=== PATIENT | female | born 1965 | race Native Hawaiian/Other Pacific Islander ===

== ENCOUNTER 2017-08-01 11:03 | Emergency (ER) | payer OTHER ==
[2017-08-01] MEDS ORDERED: BENADRYL IV ONE (11:55)
[2017-08-01] MEDS ORDERED: MORPHINE IV ONE (11:55)
[2017-08-01 12:48] LABS: Bacteria,Urine 1+ /HPF (Negative); Bilirubin,Urine NEG (Negative); Blood,Urine NEG (Negative); Color,Urine Yellow (Yellow); Hyaline Casts,Urine 1 /LPF; Protein,Urine <15 mg/dL mg/dL (Negative); Urobilinogen,Urine < 2.0 mg/dL (<2.0)
[2017-08-01 12:50] LABS: HCG Qualitative,Urine Negative (Negative)
--- NOTE | 2017-08-01 12:51 | Emergency Department Report ---
ED Female HPI - General Chief complaint: Extremity Injury, Lower Stated complaint: VAGINAL/LEFT LEG PAIN Time Seen by Provider: 08/01/17 11:29 Source: patient, EMS Mode of arrival: Wheelchair Limitations: Language Barrier - History of Present Illness Initial comments: 51-year-old Marshallese-speaking female presents with complaint of severe vaginal irritation. Patient states this been an ongoing issue for at least 1-2 years but has gotten particularly uncomfortable over the last several days. Patient states she was treated for a vaginal infection with [facility] within the last week. Patient is awake alert and oriented 3. Describes sensation as a severe irritation of her external vaginal region/vulva. Triage note is incorrect patient does not have left leg pain patient actually has left-sided vaginal pain /irritation. Patient denies dysuria or hematuria. Lmp was over 6 years ago. Denies any trauma to area. Does state that she has slight white vaginal discharge. MD Complaint: vaginal bleeding, vaginal discharge Onset/Timin -: week(s) Location: labia Radiation: non-radiating Severity: moderate Severity scale (0 -10): 6 Quality: burning Consistency: constant Worsens with: movement Are you Now?: No - Related Data Previous Rx's Medication Instructions Recorded Last Taken Type Diphenhydramine HCl/Zinc Acet 1 applicatio TP BID PRN #1 08/01/17 Unknown Rx [Benadryl Itch Stopping Crm] cream..g. Hydroxyzine HCl 25 mg PO TID PRN #25 tablet 08/01/17 Unknown Rx Ibuprofen [Motrin] 800 mg PO Q8HR PRN #25 tablet 08/01/17 Unknown Rx Allergies Allergy/AdvReac Type Severity Reaction Status Date / Time No Known Allergies Allergy Unverified 08/01/17 11:11 ED Review of Systems ROS: Stated complaint: VAGINAL/LEFT LEG PAIN Other details as noted in HPI Constitutional: denies: chills, fever Eyes: denies: eye pain, eye discharge, vision change ENT: denies: ear pain, throat pain Respiratory: denies: cough, shortness of breath, wheezing Cardiovascular: denies: chest pain, palpitations Endocrine: no symptoms reported Gastrointestinal: denies: abdominal pain, nausea, diarrhea Genitourinary: denies: urgency, dysuria, discharge Musculoskeletal: denies: back pain, joint swelling, arthralgia Skin: denies: rash, lesions Neurological: denies: headache, weakness, paresthesias Psychiatric: denies: anxiety, depression Hematological/Lymphatic: denies: easy bleeding, easy bruising ED Past Medical Hx - Past Medical History Previous Medical History?: Yes Additional medical history: vaginosis ad perineum irritation - Surgical History Past Surgical History?: Yes Additional Surgical History: x 1 - Social History Smoking Status: Never Smoker Substance Use Type: Prescribed - Medications Home Medications: Home Medications Medication Instructions Recorded Confirmed Last Taken Type Diphenhydramine HCl/Zinc Acet 1 applicatio TP BID PRN #1 08/01/17 Unknown Rx [Benadryl Itch Stopping Crm] cream..g. Hydroxyzine HCl 25 mg PO TID PRN #25 tablet 08/01/17 Unknown Rx Ibuprofen [Motrin] 800 mg PO Q8HR PRN #25 tablet 08/01/17 Unknown Rx ED Physical Exam - General Limitations: Language Barrier General appearance: alert, in no apparent distress - Head Head exam: Present: atraumatic, normocephalic - Eye Eye exam: Present: normal appearance, PERRL, EOMI - ENT ENT exam: Present: mucous membranes moist - Neck Neck exam: Present: normal inspection - Respiratory Respiratory exam: Present: normal lung sounds bilaterally. Absent: respiratory distress - Cardiovascular Cardiovascular Exam: Present: regular rate, normal rhythm. Absent: systolic murmur, diastolic murmur, rubs, gallop - GI/Abdominal GI/Abdominal exam: Present: soft, normal bowel sounds - Extremities Exam Extremities exam: Present: normal inspection - Back Exam Back exam: Present: normal inspection - Neurological Exam Neurological exam: Present: alert, oriented X3 - Psychiatric Psychiatric exam: Present: normal affect, normal mood - Skin Skin exam: Present: warm, dry, intact, normal color. Absent: rash ED Course Vital Signs 08/01/17 08/01/17 11:11 12:24 Temperature 98.6 F Pulse Rate 50 L Respiratory 18 18 Rate Blood Pressure 180/90 O2 Sat by Pulse 99 Oximetry ED Medical Decision Making - Medical Decision Making A/P: Vaginal itch and sclerosis 1- 2- 3- 4- Critical care attestation.: If time is entered above; I have spent that time in minutes in the direct care of this critically ill patient, excluding procedure time. ED Disposition Clinical Impression: Vulvar itching, Vaginal discomfort Disposition: TO HOME OR SELFCARE Is pt being admited?: No Does the pt Need Aspirin: No Condition: Stable Instructions: Vaginitis (ED) Prescriptions: Diphenhydramine HCl/Zinc Acet [Benadryl Itch Stopping Crm] 1 applicatio TP BID PRN #1 cream..g. PRN Reason: Itching Hydroxyzine HCl 25 mg PO TID PRN #25 tablet PRN Reason: Itching Ibuprofen [Motrin] 800 mg PO Q8HR PRN #25 tablet PRN Reason: Pain Referrals: [facility] [Provider Group] - 3-5 Days [facility] [Provider Group] - 3-5 Days Time of Disposition: 15:09 Print Language: LATVIAN
[2017-08-01] MEDS ORDERED: MOTRIN PO ONE (15:12)
[2017-08-01 15:47] VITALS: BP 176/88
== END 2017-08-01 15:44 | disposition home or self-care (01) ==
LOC: ED 11:03
DX: N93.9 Abnormal uterine and vaginal bleeding, unspecified (principal)
CPT/HCPCS: 81001; 81025; 87086; 87210; 87591; 96374; 96375; 99284; J1200; J2270